=== PATIENT | female | born 1965 | race Caucasian/White ===

== ENCOUNTER → 2024-01-07 14:24 | Outpatient (REF) | payer OTHER, SELFPAY | LOC: WDC 14:24 | PROVIDERS: ATTENDING PHYSICIAN Nurse Practitioner Family; FAMILY PHYSICIAN Family Medicine | DX: Z12.31 Encounter for screening mammogram for malignant neoplasm of breast (principal) | CPT/HCPCS: 77063; 77067 ==

== ENCOUNTER → 2024-01-13 09:43 | Outpatient (REF) | payer OTHER, SELFPAY | LOC: WDC 09:43 | PROVIDERS: ATTENDING PHYSICIAN Nurse Practitioner Family; FAMILY PHYSICIAN Family Medicine | DX: R92.8 Other abnormal and inconclusive findings on diagnostic imaging of breast (principal) | CPT/HCPCS: 77065 ==

== ENCOUNTER → 2024-01-19 06:26 | Outpatient (REF) | payer OTHER, SELFPAY ==
--- NOTE | 2024-01-19 09:00 | OID.BR.INTR ---
[facility] Breast Navigator - Initial
- -
Date of Contact: 01/19/24
Met with patient. Patient given written information on navigator services available at [facility]. Will follow up as needed per protocol.
== END ==
LOC: WDC 06:26
PROVIDERS: ATTENDING PHYSICIAN Nurse Practitioner Family; FAMILY PHYSICIAN Family Medicine
DX: R92.1 Mammographic calcification found on diagnostic imaging of breast (principal)
CPT/HCPCS: 88305; 19081; 76098; 88341; 88342; 88360; A4648

== ENCOUNTER → 2024-02-08 14:53 | Outpatient (REF) | payer OTHER, SELFPAY | LOC: WDC 14:53 | PROVIDERS: ATTENDING PHYSICIAN Surgery | DX: C50.411 Malignant neoplasm of upper-outer quadrant of right female breast (principal); Z17.1 Estrogen receptor negative status [ER-]; R92.2 Inconclusive mammogram | CPT/HCPCS: 76641 ==